=== PATIENT | male | born 1960 | race Caucasian/White ===

== ENCOUNTER 2019-07-25 18:00 | Emergency (ER) | payer SELFPAY ==
[~2019-07-25] VITALS: Ht 182.9 cm; Wt 100.0 kg
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
[2019-07-25] MEDS ORDERED: IV RINGERS SOLUTION,LACTATED 1,000 ML IV SCH (18:25)
[2019-07-25] MEDS ORDERED: MVI, ADULT NO.4 WITH VIT K 10 ML, THIAMINE INJ 100 MG in IV RINGERS SOLUTION,LACTATED 1... IV ONE ×3 (18:30)
--- NOTE | 2019-07-25 18:41 | EKG ---
[address] [address] Test Date: 2019-07-25 Test Time: 18:32:04 Pat Name: MAYITO CANCHOLA Department: Room: Gender: M Telehealth Coordinator: : 1960 Requested By: IRWIN MACIEL Order Number: [id number] Reading MD: Bk Howard MD Measurements Intervals Brooks Rate: 68 P: 52 WV: 174 QRS: 13 QRSD: 92 T: 14 QT: 428 QTc: 460 Interpretive Statements SINUS RHYTHM Electronically Signed On 07-27-2019 9:44:21 CDT by Bk Howard MD
[2019-07-25] MEDS ORDERED: FOLIC ACID 1 MG TABLET PO ONE (18:45)
[2019-07-25 18:47] LABS: BARBITURATES NEG (NEG); BENZODIAZEPINES NEG (NEG); CANNABINOIDS NEG (NEG); COCAINE NEG (NEG); METHADONE NEG (NEG); OPIATES NEG (NEG); PHENCYCLIDINE NEG (NEG)
[2019-07-25 18:57] LABS: BACTERIA,URINE 0 /HPF (0-FEW); BILIRUBIN,URINE NEG (NEG); CLARITY,URINE CLEAR; COLOR,URINE STRAW; GLUCOSE,URINE NEG (NEG); NITRITE,URINE NEG (NEG); RBC,URINE 0 /HPF (0-2); SQUAMOUS EPITHELIAL CELL,UR OCC /LPF; UROBILINOGEN,URINE 0.2 mg/dL (0.2 mg/dL); WBC,URINE 0 /HPF (0-4)
[2019-07-25] MEDS ORDERED: IOHEXOL 300 MG/ML 75 ML VIAL. IV ONE (19:00)
[2019-07-25 19:01] LABS: BASO % 1 % (0-3); EOS # 0.3 x10^3/uL (0.0-0.7); EOS % 5 % (0-3); HEMATOCRIT 44.9 % (39.0-53.0); HEMOGLOBIN 15.3 g/dL (13.0-17.5); LYMPH # 2.5 x10^3/uL (1.0-4.8); LYMPH % 50 % (24-48); MEAN CORPUSCULAR HEMOGLOBIN 34 pg (25-35); MEAN CORPUSCULAR HGB CONC 34 g/dL (31-37); MEAN CORPUSCULAR VOLUME 100 fL (79-100); MONO # 0.6 x10^3/uL (0.0-1.1); MONO % 11 % (0-9); NEUT # 1.6 x10^3uL (1.8-7.7); NEUT % 33 % (31-73); PLATELET COUNT 149 x10^3/uL (140-400); RED BLOOD COUNT 4.51 x10^6/uL (4.30-5.70); RED CELL DISTRIBUTION WIDTH 14.3 % (11.5-14.5)
[2019-07-25 19:01] LABS: AMPHETAMINE/METHAMPHETAMINE NEG (NEG)
[2019-07-25] MEDS ORDERED: CONTRAST GIVEN MC PRN (19:15)
[2019-07-25 19:20] LABS: CREATININE 0.8 mg/dL (0.7-1.3); GFR 98.9; POTASSIUM 3.7 mmol/L (3.5-5.1)
[2019-07-25 19:33] LABS: ALBUMIN 3.4 g/dL (3.4-5.0); DIRECT BILIRUBIN 0.2 mg/dL (0.0-0.2); TOTAL BILIRUBIN 0.6 mg/dL (0.2-1.0); TOTAL PROTEIN 6.4 g/dL (6.4-8.2)
[2019-07-25] MEDS ORDERED: THIAMINE IM 200 MG/2 ML VIAL. IM ONE (19:38)
[2019-07-25 20:09] VITALS: BP 118/69
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
== END 2019-07-26 04:50 | disposition home or self-care (01) ==
LOC: ER 18:00
DX: F10.229 Alcohol dependence with intoxication, unspecified (principal); R42 Dizziness and giddiness; F43.21 Adjustment disorder with depressed mood; F17.210 Nicotine dependence, cigarettes, uncomplicated; F41.9 Anxiety disorder, unspecified; F32.9 Major depressive disorder, single episode, unspecified; Z88.0 Allergy status to penicillin; Y90.8 Blood alcohol level of 240 mg/100 ml or more
CPT/HCPCS: 36415; 70450; 72125; 74022; 74177; 80048; 80076; 80307; 81001; 82550; 83690; 83735; 83880; 84443; 84484; 85025; 85610; 85730; 86705; 86709; 86803; 87340; 93005; 96361; 96365; 96366; 99285; G0480; J7120; Q9967

== ENCOUNTER 2019-07-31 23:06 | Emergency (ER) | payer OTHER ==
[~2019-07-31] VITALS: Ht 182.9 cm; Wt 99.7 kg
[2019-07-31] MEDS ORDERED: ONDANSETRON PF 4 MG/2 ML VIAL. IVP ONE (23:15)
[2019-07-31] MEDS ORDERED: MVI, ADULT NO.4 WITH VIT K 10 ML, THIAMINE INJ 100 MG in IV NORMAL SALINE 1,000ML 1,000... IV ONE ×3 (23:30)
[2019-07-31] MEDS ORDERED: FOLIC ACID 1 MG TABLET PO ONE (23:30)
[2019-07-31] MEDS ORDERED: MVI, ADULT NO.4 WITH VIT K 10 ML VIAL IV ONE (23:44)
[2019-07-31] MEDS ORDERED: THIAMINE 200 MG/2 ML VIAL. IV ONE (23:44)
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
[2019-08-01 00:45] LABS: CREATININE 0.7 mg/dL (0.7-1.3); GFR 115.4; POTASSIUM 3.5 mmol/L (3.5-5.1)
[2019-08-01 00:46] LABS: BASO % 1 % (0-3); EOS # 0.1 x10^3/uL (0.0-0.7); EOS % 3 % (0-3); HEMATOCRIT 49.2 % (39.0-53.0); HEMOGLOBIN 16.5 g/dL (13.0-17.5); LYMPH # 1.6 x10^3/uL (1.0-4.8); LYMPH % 37 % (24-48); MEAN CORPUSCULAR HEMOGLOBIN 34 pg (25-35); MEAN CORPUSCULAR HGB CONC 34 g/dL (31-37); MEAN CORPUSCULAR VOLUME 101 fL (79-100); MONO # 0.5 x10^3/uL (0.0-1.1); MONO % 10 % (0-9); NEUT # 2.2 x10^3uL (1.8-7.7); NEUT % 50 % (31-73); PLATELET COUNT 116 x10^3/uL (140-400); RED BLOOD COUNT 4.87 x10^6/uL (4.30-5.70); RED CELL DISTRIBUTION WIDTH 15.1 % (11.5-14.5); WHITE BLOOD COUNT 4.4 x10^3/uL (4.0-11.0)
[2019-08-01 00:52] LABS: ALBUMIN/GLOBULIN RATIO 1.1 (1.0-1.7); TOTAL BILIRUBIN 0.7 mg/dL (0.2-1.0); TOTAL PROTEIN 7.7 g/dL (6.4-8.2)
[2019-08-01 02:10] VITALS: BP 115/69
== END 2019-08-01 02:45 | disposition home or self-care (01) ==
LOC: ER 23:06
DX: F10.229 Alcohol dependence with intoxication, unspecified (principal); F41.9 Anxiety disorder, unspecified; F32.9 Major depressive disorder, single episode, unspecified; F17.210 Nicotine dependence, cigarettes, uncomplicated; Z98.890 Other specified postprocedural states
CPT/HCPCS: 36415; 80053; 85025; 96365; 96366; 96375; 99285; J2405; J7030

== ENCOUNTER 2019-12-17 15:26 | Emergency (ER) | payer OTHER ==
[~2019-12-17] VITALS: Ht 182.9 cm; Wt 99.7 kg
[2019-12-17] MEDS ORDERED: IV NORMAL SALINE 1,000ML 1,000 ML IV SCH (15:34)
--- NOTE | 2019-12-17 15:34 | PHYS DOC ---
Past History Past Medical History: Alcoholism, Anxiety, Depression, Seizure, Other Additional Past Medical Histor: states he was just here and has a concussion; PTSD Past Surgical History: Other Additional Past Surgical Histo: right knee, brown recluse wound Smoking: Cigarettes Alcohol Use: Heavy Adult General Chief Complaint Chief Complaint: FLANK PAIN HPI HPI Patient is a 59-year-old male who presents via EMS for left flank/back pain. Reports onset was 2 days ago after lifting household object. Nothing known makes better, patient reports certain body movements and palpation of muscle body makes worse. Pain is sharp and radiates to, reports pain is 7 out of 10 in severity and waxes and wanes. He has not done anything in attempt to alleviate pain. Patient recently moved to the area, admits to drinking alcohol daily. Reports this has helped with the pain. Associated symptoms include generalized malaise, nausea, and recent blood in stool x3 days. Patient denies any fever, neck pain, chest pain, shortness of breath, urinary symptoms, trauma or falls Review of Systems Review of Systems Fourteen body systems of review of systems have been reviewed. See HPI for pertinent positives and negative responses, other recio all other systems are negative, non-pertinent or non-contributory Allergies Allergies Allergies Coded Allergies Type Severity Reaction Last Updated Verified Penicillins Allergy Unknown 08/01/19 Yes Physical Exam Physical Exam Constitutional: Well developed, well nourished, no acute distress, non-toxic appearance. Appears acutely intoxicated HENT: Normocephalic, atraumatic, bilateral external ears normal, negative cintron sign oropharynx moist, no oral exudates, nose normal. Flushed cheeks Eyes: PERRLA, EOMI, conjunctiva normal, no discharge. Neck: Normal range of motion, no tenderness, supple, no stridor. Cardiovascular: Heart rate regular, sinus rhythm, no murmurs rubs or gallops Lungs & Thorax: Bilateral breath sounds clear to auscultation Abdomen: Bowel sounds normal, soft, no tenderness, no masses, no pulsatile masses. Nonsurgical abdomen, no peritoneal signs Skin: Warm, dry, no erythema, no rash. Back: No palpable abnormalities or step-off to cervical, thoracic, or lumbar spinous processes. Left CVA tenderness, tenderness of left para lumbar muscle bodies reproducing patient's symptoms Extremities: No tenderness, no cyanosis, no clubbing, ROM intact, no edema. Neurologic: Alert and oriented X 3, cranial nerves II through XII intact, normal motor & sensory function, no focal deficits noted. Essential tremor of upper extremities present Psychologic: Affect normal, judgement normal, mood normal. Current Patient Data Vital Signs Vital Signs Date Time Temp Pulse Resp B/P (MAP) Pulse Ox O2 Delivery O2 Flow Rate FiO2 12/17/19 16:12 98.7 83 18 152/91 (111) 100 Lab Results Laboratory Tests Test 12/17/19 15:40 White Blood Count 5.9 x10^3/uL (4.0-11.0) Red Blood Count 4.45 x10^6/uL (4.30-5.70) Hemoglobin 16.0 g/dL (13.0-17.5) Hematocrit 46.0 % (39.0-53.0) Mean Corpuscular Volume 103 fL (79-100) Mean Corpuscular Hemoglobin 36 pg (25-35) Mean Corpuscular Hemoglobin Concent 35 g/dL (31-37) Red Cell Distribution Width 14.5 % (11.5-14.5) Platelet Count 125 x10^3/uL (140-400) Neutrophils (%) (Auto) 62 % (31-73) Lymphocytes (%) (Auto) 19 % (24-48) Monocytes (%) (Auto) 18 % (0-9) Eosinophils (%) (Auto) 1 % (0-3) Basophils (%) (Auto) 0 % (0-3) Neutrophils # (Auto) 3.6 x10^3uL (1.8-7.7) Lymphocytes # (Auto) 1.1 x10^3/uL (1.0-4.8) Monocytes # (Auto) 1.1 x10^3/uL (0.0-1.1) Eosinophils # (Auto) 0.1 x10^3/uL (0.0-0.7) Basophils # (Auto) 0.0 x10^3/uL (0.0-0.2) Prothrombin Time 9.8 SEC (9.4-11.4) Prothromb Time International Ratio 0.9 (0.9-1.1) Activated Partial Thromboplast Time 26 SEC (23-33) Urine Collection Type Unknown Urine Color Yellow Urine Clarity Clear Urine pH 5.0 Urine Specific [place] 1.020 Urine Protein Neg (NEG-TRACE) Urine Glucose (UA) Neg mg/dL (NEG) Urine Ketones (Stick) Neg mg/dL (NEG) Urine Blood Neg (NEG) Urine Nitrite Neg (NEG) Urine Bilirubin Neg (NEG) Urine Urobilinogen Dipstick 0.2 mg/dL (0.2 mg/dL) Urine Leukocyte Esterase Neg (NEG) Urine RBC 0 /HPF (0-2) Urine WBC 0 /HPF (0-4) Urine Bacteria 0 /HPF (0-FEW) Sodium Level 139 mmol/L (136-145) Potassium Level 3.9 mmol/L (3.5-5.1) Chloride Level 103 mmol/L (98-107) Carbon Dioxide Level 22 mmol/L (21-32) Anion Gap 14 (6-14) Blood Urea Nitrogen 9 mg/dL (8-26) Creatinine 0.7 mg/dL (0.7-1.3) Estimated GFR (Cockcroft-Gault) 115.0 BUN/Creatinine Ratio 13 (6-20) Glucose Level 100 mg/dL (70-99) Lactic Acid Level 2.0 mmol/L (0.4-2.0) Calcium Level 8.6 mg/dL (8.5-10.1) Total Bilirubin 1.0 mg/dL (0.2-1.0) Aspartate Amino Transf (AST/SGOT) 71 U/L (15-37) Alanine Aminotransferase (ALT/SGPT) 70 U/L (16-63) Alkaline Phosphatase 72 U/L (46-116) Troponin I Quantitative < 0.017 ng/mL (0-0.055) Total Protein 8.0 g/dL (6.4-8.2) Albumin 3.6 g/dL (3.4-5.0) Albumin/Globulin Ratio 0.8 (1.0-1.7) Lipase 306 U/L (73-393) Urine Opiates Screen Neg (NEG) Urine Methadone Screen Neg (NEG) Urine Barbiturates Neg (NEG) Urine Phencyclidine Screen Neg (NEG) Urine Amphetamine/Methamphetamine Neg (NEG) Urine Benzodiazepines Screen Neg (NEG) Urine Cocaine Screen Neg (NEG) Urine Cannabinoids Screen Neg (NEG) Ethyl Alcohol Level 264 mg/dL (0-10) Urine Ethyl Alcohol Pos (NEG) EKG EKG EKG ordered and interpreted by jayantelf at 1610 hrs. as sinus rhythm at 81 bpm, unremarkable intervals, no axis deviation, no acute ischemic findings, no fascicular blocks, no STEMI Radiology/Procedures Radiology/Procedures PROCEDURE: PORTABLE CHEST 1V Single AP view of the chest. Comparison: None. Indication: Left flank pain Findings: The heart is not enlarged. There is no pneumothorax or effusion. No air space or interstitial disease. Impression: 1. No acute cardiopulmonary process. Electronically signed by: Elijah Hooks MD (12/17/2019 3:55 PM) [id number] PROCEDURE: CT ABD PELV W/ IV CONTRST ONLY Exam: CT of abdomen and pelvis with contrast INDICATION: Flank pain TECHNIQUE: Sequential axial images through the abdomen and pelvis obtained following the administration of 75 mL of Omni 300 IV contrast. Sagittal and coronal reformatted images were reconstructed from the axial data and reviewed. Comparisons: 07/25/2019 FINDINGS: Heart size is normal. No pericardial effusion. Visualized lung bases are clear. No pleural effusion. There is diffuse hepatic steatosis. Spleen, pancreas, gallbladder and adrenals are unremarkable. No perinephric inflammation or hydronephrosis. No renal or ureteral calculi are identified. Bladder is distended and appears thin-walled. Prostate is not enlarged. Large and small bowel are unremarkable. Appendix is normal. No free intra-abdominal air or fluid. No obstruction. Abdominal aorta has a normal course and caliber. Abdominal vasculature is patent. No enlarged abdominal lymph nodes are identified. No suspicious osseous lesions or acute fractures. IMPRESSION: 1. No acute process identified within the abdomen or pelvis. 2. Diffuse hepatic steatosis. Exposure: One or more of the following in the visualized dose reduction techniques were utilized for this examination: 1. Automated exposure control 2. Adjustment of the MA and/or KV according to patient size 3. Use of iterative of reconstructive technique Electronically signed by: Josefina Chavez MD (12/17/2019 5:40 PM) [id number] Course & Med Decision Making Course & Med Decision Making Patient seen on immediate arrival via EMS ABCs grossly non-concerning History and physical obtained with subsequent ordering of diagnostic studies for high risk alcoholic dependent patient who is acutely intoxicated IV access obtained, 4 mg IV Zofran, 100 mg thiamine, 1 mg IV Ativan and 1 L normal saline administered Patient reassessed numerous times throughout ER visit and grossly asymptomatic and comfortable in bed. Symptoms are reproducible with twisting and bending motions only Comprehensive ER work-up reviewed, discussed grossly non-concerning diagnostic work-up Discussed most likely diagnosis of lumbar strain versus other nonemergent and nonsurgical causes of back/flank pain. I did disclose that this might be an acute presentation of more concerning pathology and follow-up with local PCP is essential Patient reports being new to the area and does not have PCP, I gave patient list of local primary care physicians to call and establish care for follow-up in upcoming 1 to 10 days I also counseled patient extensively on alcohol dependence and withdrawals. Patient reports experiencing withdrawals in the past but has never been hospitalized for this. I discussed importance of safely detoxing and staying sober for the sake of his long-term health Ultimately, stable patient discharged home with strict return precautions and demonstrated good understanding, all questions and concerns addressed prior to ER departure home with friend Abner Disclaimer Abner Disclaimer This electronic medical record was generated, in whole or in part, using a voice recognition dictation system. Departure Departure: Impression: Primary Impression: Left flank pain Additional Impressions: Lower back pain Alcohol abuse Disposition: HOME/RESIDENCE PRIOR TO ADM Condition: STABLE Referrals: PCP,NO (PCP) Patient Instructions: Alcohol Intoxication, Alcohol Withdrawal Justification of Admission: Justification of Admission: Justification of Admission Dx: N/A Problem Qualifiers REY PADRON DO Dec 17, 2019 15:34
[2019-12-17] MEDS ORDERED: ONDANSETRON PF 4 MG/2 ML VIAL. ONE (15:40)
--- NOTE | 2019-12-17 15:57 | RAD ---
Single AP view of the chest. Comparison: None. Indication: Left flank pain Findings: The heart is not enlarged. There is no pneumothorax or effusion. No air space or interstitial disease. Impression: 1. No acute cardiopulmonary process. Electronically signed by: Elijah Hooks MD (12/17/2019 3:55 PM) [id number]
[2019-12-17] MEDS ORDERED: THIAMINE INJ 100 MG in IV NORMAL SALINE 50ML 50 ML IV ONE (16:00)
[2019-12-17 16:12] VITALS: BP 152/91
--- NOTE | 2019-12-17 16:14 | EKG ---
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
[2019-12-17 16:29] LABS: BASO % 0 % (0-3); EOS # 0.1 x10^3/uL (0.0-0.7); EOS % 1 % (0-3); LYMPH # 1.1 x10^3/uL (1.0-4.8); LYMPH % 19 % (24-48); MEAN CORPUSCULAR HEMOGLOBIN 36 pg (25-35); MEAN CORPUSCULAR HGB CONC 35 g/dL (31-37); MEAN CORPUSCULAR VOLUME 103 fL (79-100); MONO # 1.1 x10^3/uL (0.0-1.1); MONO % 18 % (0-9); NEUT # 3.6 x10^3uL (1.8-7.7); NEUT % 62 % (31-73); PLATELET COUNT 125 x10^3/uL (140-400); RED BLOOD COUNT 4.45 x10^6/uL (4.30-5.70); RED CELL DISTRIBUTION WIDTH 14.5 % (11.5-14.5); WHITE BLOOD COUNT 5.9 x10^3/uL (4.0-11.0)
[2019-12-17] MEDS ORDERED: IOHEXOL 300 MG/ML 75 ML VIAL. IV ONE (16:30)
[2019-12-17 16:35] LABS: BARBITURATES NEG (NEG); BENZODIAZEPINES NEG (NEG); CALCIUM 8.6 mg/dL (8.5-10.1); CANNABINOIDS NEG (NEG); COCAINE NEG (NEG); CREATININE 0.7 mg/dL (0.7-1.3); METHADONE NEG (NEG); OPIATES NEG (NEG); PHENCYCLIDINE NEG (NEG); POTASSIUM 3.9 mmol/L (3.5-5.1)
[2019-12-17 16:36] LABS: AMPHETAMINE/METHAMPHETAMINE NEG (NEG)
[2019-12-17 16:41] LABS: ALBUMIN 3.6 g/dL (3.4-5.0); ALBUMIN/GLOBULIN RATIO 0.8 (1.0-1.7)
[2019-12-17 16:44] LABS: BILIRUBIN,URINE NEG (NEG); CLARITY,URINE CLEAR; COLOR,URINE YELLOW; GLUCOSE,URINE NEG (NEG); NITRITE,URINE NEG (NEG); RBC,URINE 0 /HPF (0-2); UROBILINOGEN,URINE 0.2 mg/dL (0.2 mg/dL)
[2019-12-17 16:45] LABS: BACTERIA,URINE 0 /HPF (0-FEW); WBC,URINE 0 /HPF (0-4)
--- NOTE | 2019-12-17 17:42 | RAD ---
Exam: CT of abdomen and pelvis with contrast INDICATION: Flank pain TECHNIQUE: Sequential axial images through the abdomen and pelvis obtained following the administration of 75 mL of Omni 300 IV contrast. Sagittal and coronal reformatted images were reconstructed from the axial data and reviewed. Comparisons: 07/25/2019 FINDINGS: Heart size is normal. No pericardial effusion. Visualized lung bases are clear. No pleural effusion. There is diffuse hepatic steatosis. Spleen, pancreas, gallbladder and adrenals are unremarkable. No perinephric inflammation or hydronephrosis. No renal or ureteral calculi are identified. Bladder is distended and appears thin-walled. Prostate is not enlarged. Large and small bowel are unremarkable. Appendix is normal. No free intra-abdominal air or fluid. No obstruction. Abdominal aorta has a normal course and caliber. Abdominal vasculature is patent. No enlarged abdominal lymph nodes are identified. No suspicious osseous lesions or acute fractures. IMPRESSION: 1. No acute process identified within the abdomen or pelvis. 2. Diffuse hepatic steatosis. Exposure: One or more of the following in the visualized dose reduction techniques were utilized for this examination: 1. Automated exposure control 2. Adjustment of the MA and/or KV according to patient size 3. Use of iterative of reconstructive technique Electronically signed by: Josefina Chavez MD (12/17/2019 5:40 PM) [id number]
== END 2019-12-17 18:40 | disposition home or self-care (01) ==
LOC: ER 15:26
DX: M54.5 Low back pain (principal); R10.9 Unspecified abdominal pain; F10.20 Alcohol dependence, uncomplicated; K92.1 Melena; F17.210 Nicotine dependence, cigarettes, uncomplicated; Z88.0 Allergy status to penicillin; Y90.8 Blood alcohol level of 240 mg/100 ml or more
CPT/HCPCS: 36415; 71045; 74177; 80053; 80307; 81001; 83605; 83690; 84484; 85025; 85610; 85730; 87040; 93005; 96361; 96365; 99285; G0480; J7030; Q9967; 99284-25

== ENCOUNTER 2020-10-19 12:37 | Emergency (ER) | payer OTHER ==
[~2020-10-19] VITALS: Ht 182.9 cm; Wt 99.7 kg
[2020-10-19 12:37] VITALS: BP 154/113
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
--- NOTE | 2020-10-19 13:42 | RAD ---
Right foot 3 views. HISTORY: Injury 3 views were taken of the right foot. There is a oblique fracture through the head of the right fifth metacarpal. No other fracture or acute osseous abnormality is noted. IMPRESSION: 1. Fracture right fifth metacarpal. Electronically signed by: Andrew Cruz MD (10/19/2020 1:40 PM) [id number]
--- NOTE | 2020-10-19 13:44 | RAD ---
Left RIBS AP and oblique views. HISTORY: Injury AP and oblique views were taken of the left ribs. There are fractures of the anterior eighth, ninth a nd 10th ribs. There is mild atelectasis in the left lung base. There is no obvious pneumothorax. Ther e is arthritis at the shoulder with joint space narrowing and spurring. IMPRESSION: 1. Fracture anterior left eighth, ninth and 10th ribs. 2. Arthritis left shoulder. Electronically signed by: Andrew Cruz MD (10/19/2020 1:42 PM) [id number]
== END 2020-10-19 15:33 | disposition home or self-care (01) ==
LOC: ER 12:37
DX: S22.42XA Multiple fractures of ribs, left side, initial encounter for closed fracture (principal); S92.354A Nondisplaced fracture of fifth metatarsal bone, right foot, initial encounter for closed fracture; F10.20 Alcohol dependence, uncomplicated; F17.210 Nicotine dependence, cigarettes, uncomplicated; Z88.0 Allergy status to penicillin; Y90.9 Presence of alcohol in blood, level not specified; Y00.XXXA Assault by blunt object, initial encounter; Y93.89 Activity, other specified; Y92.89 Other specified places as the place of occurrence of the external cause; Y99.8 Other external cause status
CPT/HCPCS: 70450; 71100; 72125; 73630; 99285-25